=== PATIENT | male | born 1995 | race Caucasian/White ===

== ENCOUNTER 2022-03-26 09:16 | Emergency (ER) | payer OTHER, SELFPAY ==
[2022-03-26 09:36] VITALS: BP 132/84; PULSE 90; TEMP 37; O2SAT 98
[2022-03-26 10:24] LABS: Add Urine Microscopic? YES; Appearance Urine Clear (Clear); Bilirubin Urine Negative (Negative); Blood Urine Trace-Intact (Negative); Color Urine Light Yellow (Yellow); Glucose Urine UA Negative (Negative); Ketones Urine Negative (Negative); Leukocyte Esterase Ur Negative LEU/UL (Negative); Nitrate Urine Negative (Negative); Protein Urine Negative (Negative); Specific Grav Ur 1.015 (1.010-1.020); Urobilinogen Urine 0.2 mg/dL (0.2-1.0); pH Urine 6.5 (5.0-8.0)
[2022-03-26 10:27] LABS: Bacteria Urine None seen /hpf; RBC Urine 0-2 /hpf (0-2); Squamous Epithelial Cell Urine Rare /hpf (Few); WBC Urine 0-3 /hpf (0-3)
--- NOTE | 2022-03-26 10:32 | ED.MALEGU ---
HPI - Male Genitourinary General Chief complaint: Urogenital-Male Stated complaint: unable to pee, pelvic pain Time Seen by Provider: 03/26/22 09:52 Source: patient Mode of arrival: ambulatory Limitations: no limitations History of Present Illness HPI Narrative: Patient is a 26-year-old white male complains penis and scrotal redness with itching and difficulty voiding for the last 4 days mild suprapubic discomfort after voiding. Complains of pain with ejaculation since last night. He last had intercourse a month ago has not had any history of sexually transmitted diseases. Denies any discharge from his penis. Denies any nausea vomiting difficulty stooling. Denies any cough fever or any other complaints. Denies any testicle pain. Related Data Home Medications Medication Instructions Recorded Confirmed No Home Medications 03/26/22 03/26/22 Review of Systems Constitutional: Constitutional: Reports no additional constitutional complaints Eyes: Eyes: Reports no additional eye complaints ENT: Reports system reviewed and no additional complaints, except as documented Cardiovascular: Cardiovascular: Reports no additional cardiovascular complaints Respiratory: Respiratory: Reports no additional respiratory complaints Gastrointestinal: Gastrointestinal: Reports no additional gastrointestinal complaints Genitourinary: Genitourinary: Reports no additional male genitourinary complaints and Reports as per HPI Musculoskeletal: Musculoskeletal: Reports no additional musculoskeletal complaints Integumentary/Breasts: Skin/Breast: Reports system reviewed and no additional complaints, except as docu and Reports as per HPI Neurologic: Reports system reviewed and no additional complaints, except as documented PMFSH Comments Living in a trailer for the last 2 months at his aunt's house. Exam Const: General: healthy appearing Nutritional Appearance: well nourished Limitations: no limitations HENMT: Head: normal to inspection Eyes: Conjunctivae: conjunctivae normal Chest: Chest palpation & inspection: normal inspection of the chest Resp: Effort & Inspection: normal respiratory effort Auscultation: clear to auscultation bilaterally Cardio: Rate: regular rate Rhythm: regular rhythm Heart sounds: no murmurs GI: GI Palp: Yes Soft to palpation, No Tenderness to palpation present (GI), No Guarding due to palpation present (GI), No Rigid due to palpation, No Hernia present and No Palpable mass present Auscultation: normal bowel sounds : General: Yes bladder normal to palpation and Yes no CVA tenderness Penis: Yes normal penis and Yes circumcised Scrotum: no scrotal swelling Testes: Testes normal, epididymides normal, no epidiymal tenderness, no testicular swelling and no testicular tenderness Other: Penis and scrotum are erythematous. Urinary Catheter: Urinary Catheter: patent and draining and urine clear Back/Spine/Pelvis: Back: no CVA tenderness Skin: General skin exam: normal color Rashes: no rashes Neuro: General: patient oriented x3 and moves all extremities Speech: normal speech Gait exam (Neuro): Normal gait present Extrem: General: normal to inspection and no clubbing, cyanosis or edema Psych: Mental Status: mental status grossly normal Course Course Emergency Course: urinalysis was unremarkable. GC and chlamydia are a send out so will treat patient empirically with Rocephin 500 mg IM and doxycycline 100 mg twice a day for 10 days. Labs were ordered and reviewed and discussed with patient and grandmother. All questions were asked and answered. Flores catheter had been placed and showed clear urine draining well, was removed prior to discharge. Vital Signs Vital signs: Vital Signs Temperature 37.0 C 03/26/22 09:36 Pulse Rate 90 03/26/22 09:36 Blood Pressure 132/84 03/26/22 09:36 Pulse Oximetry 98 03/26/22 09:36 Oxygen Delivery Room Air 03/26/22 09:36 Temperature
[2022-03-26] MEDS: cefTRIAXone 500 MG, LIDOCAINE HCL 1% LOCAL INJ 1 ML IM (11:03)
[2022-03-26] MEDS: DOXYCYCLINE HYCLATE 100 MG TABLET PO (11:04)
[2022-03-26 11:13] VITALS: BP 130/75; PULSE 90; RESP 20; TEMP 36.4; O2SAT 98
--- NOTE | 2022-03-30 12:32 | PC.NURSE ---
final results on c. trachomatis, n. gonorrhoeae were both not detected. pt is notified of results at this time.
== END 2022-03-26 11:15 | disposition home or self-care (01) ==
PROVIDERS: Emergency Provider Emergency Medicine
DX: N48.9 Disorder of penis, unspecified (principal); N50.9 Disorder of male genital organs, unspecified; R39.198 Other difficulties with micturition; Z20.2 Contact with and (suspected) exposure to infections with a predominantly sexual mode of transmission
CPT/HCPCS: 81001; 87086; 87491; 87591; 96372; 96375; 99283; A9270; J0696

== ENCOUNTER 2022-06-15 13:44 | Emergency (ER) | payer OTHER, SELFPAY ==
[2022-06-15 13:45] VITALS: BP 138/78; PULSE 100; RESP 16; TEMP 36.7; O2SAT 99
--- NOTE | 2022-06-15 14:06 | ED.URI ---
HPI - URI/Sore Throat General Chief Complaint: Upper Respiratory Infection Stated Complaint: Sore Throat Time Seen by Provider: 06/15/22 13:46 History of Present Illness HPI Narrative: This is a 26-year-old male who denies past medical history, who presents to the emergency department complaining of sore throat, runny nose and some cough for the past day. He denies nausea, vomiting or chest pain. He denies any known sick contacts or recent travel Related Data Home Medications Medication Instructions Recorded Confirmed No Home Medications 06/15/22 06/15/22 Allergies Allergy/AdvReac Type Severity Reaction Status Date / Time No Known Allergies Allergy Verified 06/15/22 13:53 Review of Systems Review of Systems: CONSTITUTIONAL: Denies fever, chills, or sweats. EYES: Denies visual changes, redness, or discharge. ENT: Rhinorrhea, congestion, sore throat, bilateral ear fullness Denies otalgia. CARDIOVASCULAR: Denies chest pain, palpitations, or edema. RESPIRATORY: Denies cough or dyspnea. GASTROINTESTINAL: Denies abdominal pain, nausea, vomiting, or diarrhea. GENITOURINARY: Denies dysuria or hematuria. SKIN: Denies rash or itching. MUSCULOSKELETAL: Denies back pain, joint pain, or myalgia. NEUROLOGIC: Denies headache, numbness, dizziness, or weakness. PSYCHIATRIC: Denies anxiety or depression. [facility] Social History Social History (Updated 06/15/22 @ 14:28 by Sergio Vazquez MD) Smoking status: Current every day smoker Alcohol intake: current Substance use: former Substance use type: former substance user Last use: 6 years ago Exam Narrative: GENERAL: Well-appearing, well-nourished, and in no acute distress. HEAD: Normocephalic, atraumatic. EYES: PERRLA and EOMI. ENT: Nares clear, no rhinorrhea or epistaxis. Mucous membranes moist. Oropharynx with tonsillar erythema, without hypertrophy exudate or other lesions. Bilateral TMs pearly thao nonbulging NECK: Supple. No adenopathy or masses. No carotid bruits or JVD CHEST: Clear to auscultation. No respiratory distress. No wheezes rales or rhonchi HEART: Regular rate and rhythm. No murmur heard. Normal peripheral pulses. ABDOMEN: Soft, nontender, nondistended, normal active bowel sounds. EXTREMITIES: Normal range of motion. No edema. SKIN: Warm, dry, no rash. NEURO: No focal deficits. Alert and oriented x3. PSYCH: Normal mood and affect. Course Course Emergency Course: 14:33 - The patient tested negative for COVID, flu and group A strep. I suspect a separate viral upper respiratory infection. Discussed return and emergency precautions including signs/symptoms of airway compromise and respiratory distress. The patient voiced understanding and is comfortable with the plan. All questions answered to his satisfaction Vital Signs Vital signs: Vital Signs Temperature 98.1 F 06/15/22 13:45 Pulse Rate 100 06/15/22 13:45 Respiratory Rate 16 06/15/22 13:45 Blood Pressure 138/78 06/15/22 13:45 Pulse Oximetry 99 06/15/22 13:45 Oxygen Delivery Room Air 06/15/22 13:45 Temperature 98.1 F 06/15/22 13:45 Pulse Rate 100 06/15/22 13:45 Respiratory Rate 16 06/15/22 13:45 Blood Pressure 138/78 06/15/22 13:45 Pulse Oximetry 99 06/15/22 13:45 Oxygen Delivery Room Air 06/15/22 13:45 MDM - URI/Sore Throat MDM Narrative Medical decision making narrative: Plan: Labs, reassess Differential Diagnosis Differential diagnosis: Likely upper respiratory infection, viral infection, pharyngitis and other (COVID, influenza, other) Lab Data Labs: Lab Results 06/15/22 06/15/22 Range/Units 13:49 13:49 Influenza A (RT-PCR) Negative (Negative) Influenza B (RT-PCR) Negative (Negative) SARS-CoV-2 RNA (RT-PCR) Negative (Negative) Group A Strep (PCR) Not detected (Negative) Discharge Plan Discharge Clinical Impression: Upper respiratory infection, viral Patient Disposition: Home, Self
[2022-06-15 14:26] LABS: Strep Group A RT-PCR NOT DETECTED (Negative)
[2022-06-15 14:30] LABS: Influenza A QL RT-PCR Negative (Negative); Influenza B QL RT-PCR Negative (Negative); SARS-CoV-2 RNA PCR Negative (Negative)
== END 2022-06-15 14:38 | disposition home or self-care (01) ==
PROVIDERS: Emergency Provider Preventive Medicine Aerospace Medicine; PCP Internal Medicine
DX: J06.9 Acute upper respiratory infection, unspecified (principal); F17.200 Nicotine dependence, unspecified, uncomplicated; Z20.822 Contact with and (suspected) exposure to COVID-19
CPT/HCPCS: 87636; 87651; 99283